=== PATIENT | male | born 1935 | race Caucasian/White ===

== ENCOUNTER 2022-01-21 11:50 | Outpatient (REF) | payer SELFPAY ==
[2022-01-21 12:42] LABS: Basophils Absolute Auto 0.03 K/uL (0.00-0.30); Basophils Percent Auto 0.5 % (0.0-3.0); Eosinophils Absolute Auto 0.22 K/uL (0.00-0.50); Eosinophils Percent Auto 3.9 % (0.0-7.0); Hematocrit 48.1 % (37.0-53.0); Hemoglobin* 14.9 gm/dL (13.5-17.5); Immature Granulocytes Abs Auto 0.02 K/uL (0.00-0.30); Lymphocytes Absolute Auto 1.39 K/uL (0.90-2.90); Lymphocytes Percent Auto 24.5 % (20-44); Mean Corpuscular HGB Conc 31 gm/dL (32-36); Mean Corpuscular Hemoglobin 34 pg (26-34); Mean Corpuscular Volume 109 fL (80-100); Monocytes Percent Auto 9.9 % (0.0-11.0); Neutrophils Absolute Auto 3.45 K/uL (1.7-7.0); Neutrophils Percent Auto 60.8 % (42.0-72.0); Platelet Count* 185 K/uL (140-440); RDW Coefficient of Variation % 16.4 % (11.5-15.5); White Blood Count* 5.67 K/uL (4.50-11.00)
[2022-01-21 12:43] LABS: Slide Review Reflex No
[2022-01-21 15:09] LABS: Albumin* 3.8 g/dL (3.3-5.0); Chloride* 99 mmol/L (96-114)
[2022-01-21 15:10] LABS: Potassium* 4.3 mmol/L (3.6-5.1); Sodium* 140 mmol/L (135-149)
[2022-01-21 15:12] LABS: Aspartate Amino Transferase* 35 U/L (12-35); Bilirubin Total* 0.5 mg/dL (0.1-1.5); Carbon Dioxide* 32 mmol/L (20-32); Creatinine* 1.5 mg/dL (0.5-1.5); Estimated Glomerular Filt Rate 45 ml/min; Total Protein* 9.1 g/dL (6.0-8.3)
[2022-01-21 15:13] LABS: Alanine Aminotransferase* 21 U/L (4-50); Alkaline Phosphatase* 121 U/L (40-150); Blood Urea Nitrogen* 46 mg/dL (7-30); Calcium* 9.5 mg/dL (8.4-10.6); Glucose* 157 mg/dL (60-115)
== END 2022-01-21 11:51 | disposition home or self-care (01) ==
LOC: NPINS 11:50
PROVIDERS: PCP Family Medicine; Visit Provider Nurse Practitioner Adult Health
DX: J44.9 Chronic obstructive pulmonary disease, unspecified (principal)
CPT/HCPCS: 80053; 85025